=== PATIENT | female | born 1975 | race Caucasian/White ===

== ENCOUNTER 2017-08-26 11:32 | Emergency (ER) | payer BC, OTHER ==
[~2017-08-26] VITALS: Ht 157.5 cm; Wt 82.4 kg
[~2017-08-26 11:32] MED LIST: PRENTAB26 PO
[2017-08-26 11:35] VITALS: TEMP 36.7; Ht 157.5 cm; Wt 82.4 kg
--- NOTE | 2017-08-26 12:41 | EMERGENCY ROOM VISIT NOTE ---
ED Visit Note First contact with patient: 12:03 CHIEF COMPLAINT: Head injury, neck pain after a fall 3 days ago HISTORY OF PRESENT ILLNESS: Patient is a healthy 41-year-old white female who presents the emergency department for evaluation of headache and neck pain after a fall 3 days ago. She slipped walking down her driveway and fell, landing primarily on her mid back and neck and striking her head on the pavement. She did not lose consciousness, and was able to get up after a few moments without any difficulty. She went back inside and laid down, noticing neck pain almost immediately. She applied some moist heat to the neck. She states the neck has become more stiff and tight recently. She also notes occasional occipital head pain that comes and goes. She denies any generalized headache. She took some ibuprofen which has doubled her pain. She denies any lightheadedness or dizziness, no nausea or vomiting. She states that she was working on the computer today and had difficulty concentrating on the computer. She denies any anterior chest pain, rib pain or shortness of breath. No difficulty with balance, speech or coordination. No numbness, tingling or weakness into the extremities. She reports that she called her family doctor and she was referred to the emergency department for evaluation. REVIEW OF SYSTEMS: Review of systems as per HPI. All other systems reviewed were negative. 10 systems reviewed. PMH: Electronic medical records are reviewed and summarized as above/below. See Problem List. SOCIAL HISTORY: Patient lives at home with her family. She is employed. Nonsmoker. PHYSICAL EXAM: Vital Signs: Reviewed Nurse's notes. CONSTITUTIONAL: Patient is a well-appearing 41-year-old female who is awake and alert and in no acute distress. GCS: 15 HEENT: Occipital scalp tenderness, without hematoma or abrasion.. Pupils equal , round, reactive to light and accommodation. EOMs intact without nystagmus. Sclera are anicteric. Tympanic membranes intact, with normal landmarks. External canals are clear. No hemotympanum or Meade sign. Oral and nasopharynx are clear. No CSF rhinorrhea. Mucous membranes are moist. NECK: Supple, nontender, no lymphadenopathy. Full range of motion. She has some reproducible tenderness in the paraspinous and trapezius muscle distribution. HEART: Regular rate and rhythm, with normal S1 and S2, no murmur or gallop or rub is heard. LUNGS: Breath sounds equal and clear to auscultation without wheezes, rales, or rhonchi heard. SKIN: No lesions or rash, normal skin turgor. EXTREMITIES: No cyanosis, edema, joint tenderness or swelling. No deformity. NEUROLOGICAL: Alert and oriented x4. Cranial nerves 2 through 12, sensation and strength grossly intact. Gait is normal. Patient is able to toe, heel and tandem walk without difficulty. Negative Romberg, and pronator drift. Finger to nose, finger to finger and rapid alternating movements are intact. Immediate , recent and remote memories are intact. Concentration is normal. ED COURSE: The patient was seen and evaluated as above. She has a mild occipital headache, and some mild closed head injury symptoms, and some musculoskeletal neck pain after a fall. Treatment options were discussed with the patient. She has a benign neurologic exam. Imaging with CT scan and x-ray was discussed with the patient, risks, benefits and alternatives were discussed with her and at this point, she would like to watch herself for any signs of a worsening head injury and forgo imaging at this time. I think that this is reasonable. My threshold for a skull fracture or an acute intracranial bleed is very low. I do not cervical spine fracture. Head injury instructions were outlined and she was educated on the worrisome signs or symptoms for which she should return to the emergency department. She was discharged to home in good condition. Medication reconciliation: I attest that I have personally reviewed the patient' s current medication list. Blood pressure screening : Patient was found to have normal blood pressure on screening and does not require follow-up. Problem List Medical Problems: (1) Intrauterine Status: Resolved (2) Previous section Status: Resolved Surgical Problems: (1) Hx of section Status: Resolved Current/Historical Medications No Active Prescriptions or Reported Meds Allergies Coded Allergies: No Known Allergies (Verified , 08/26/17) Vital Signs Date Time Temp Pulse Resp B/P (MAP) Pulse Ox O2 Delivery O2 Flow Rate FiO2 08/26/17 13:00 79 18 150/99 99 08/26/17 11:35 36.7 76 20 160/114 98 Room Air Departure Information Impression Primary Impression: Closed head injury Additional Impression: Cervical strain Prescriptions No Active Prescriptions or Reported Meds Referrals No Doctor, Assigned (PCP) Patient Instructions [facility] Additional Instructions CONCUSSION DISCHARGE INSTRUCTIONS: What is a concussion? A concussion is a disturbance in the function of the brain caused by a direct or indirect force to the head. It results in a variety of symptoms like: headache, balance problems, nausea, vomiting, vision problems, hearing problems/ringing, drowsiness, irritability, and/or difficulty concentrating or remembering. A concussion may, or may not involve memory problems or loss of consciousness. Concussion instructions: Stop and stay away from ALL physical activity until you are symptom free from: Headaches Balance problems Feeling "dinged" Poor concentration Drowsy Fatigued Rest and avoid strenuous activities for the next few days. Get 8-10 hours of sleep per night. Limit activities that involve significant concentration and attention during this time to speed your recovery. This includes studying, attending school, playing video games, and heavy reading. Your brain needs to rest. Eat right and eat often. Now is the time to feed your brain. Well balanced diets that avoid high sugar foods, sodas, caffeine, etc. are better for your brain. NO ALCOHOL OR DRUGS! Avoid stimulants like caffeine, red bull, mountain dew, "energy" drinks, etc. Ibuprofen(Motrin, Advil) may be used for fever or pain. Use 600mg every six hours as needed. Take with food. Avoid using more than 2400mg in a 24 hour period. Do not use 2400mg per day for more than three consecutive days without physician direction. Prolonged inappropriate use can lead to stomach upset or ulcers. (AND/OR) Acetaminophen(Tylenol) may be used for fever or pain. Use 1000mg every six hours as needed. Avoid using more than 3000mg in a 24 hour period. Apply moist heat to the neck as needed for pain and stiffness. Perform gentle stretching and range of motion exercises to help reduce stiffness and spasm. Stepwise return to sports for athletes: You may progress to the next step after 24 hours if you are symptom free. If you experience symptoms, you must return to the previous stage and try again after another 24 hours of rest and being symptom free. Best case scenario is full contact game play in 96 hours from the time of injury. Remember repeat concussions are worse than the first. Time invested in recovery will allow for better performance and less downtime in the future. If you have any questions see your personal trainer or make an appointment to see one of the team physicians. 1) No activity, complete rest. Once all symptoms have resolved, report to the team physician or personal trainer to be cleared to progress to step 2. 2) Start light aerobic exercise, such as walking or stationary cycling, no resistance training permitted. 3) Sport specific exercises. Add light resistance slowly. Go slow to allow your body to readapt. 4) Non-contact full speed practice. 5) Full contact practice and/or game play. FOLLOW UP INSTRUCTIONS: You should have a follow up with your family doctor or team physician in 3-5 days regarding your injury. POST CONCUSSIVE SYNDROME: Occasionally patients can experience a postconcussive syndrome which includes prolonged headaches and memory difficulties. This may occur over the next several days, weeks or rarely, even months. It is important to have a primary care physician follow-up in order to help if the situation develops. Problems could arise over the next 24 to 48 hours. You should not be left alone and MUST go to the hospital immediately if you: -Have a headache that suddenly gets worse. -Are very drowsy or cannot be woken up from sleep. -Can't recognize people or places. -Have repeated vomiting. -Behave unusually, seemed confused, or start acting irritable. -Have a seizure (arms and legs start jerking uncontrollably). -Have weak or numb arms or legs. -Are unsteady on your feet -Experience slurred speech or difficulty speaking. Problem Qualifiers
[2017-08-26 13:00] VITALS: BP 150/99; PULSE 79; O2SAT 99
== END 2017-08-26 12:58 | disposition home or self-care (01) ==
LOC: C.EDB 11:34 → C.EDD 12:58
DX: S09.90XA Unspecified injury of head, initial encounter (principal); S16.1XXA Strain of muscle, fascia and tendon at neck level, initial encounter; W01.0XXA Fall on same level from slipping, tripping and stumbling without subsequent striking against object, initial encounter; Y92.014 Private driveway to single-family (private) house as the place of occurrence of the external cause